=== PATIENT | male | born 1955 | race Caucasian/White ===

== ENCOUNTER 2016-10-31 19:54 | Emergency (ER) | payer BC, SELFPAY ==
--- NOTE | 2016-10-31 20:50 | REPUSA ---
CT of the cervical spine Clinical history: Pain. Technique: Multiple axial CT images were obtained through the cervical spine without administration o f contrast. Coronal and sagittal 3-D reconstructed images were also obtained. Comparison: None. Findings: The cervical vertebral bodies are in satisfactory positioning and alignment. No fractures or dislocat ions are demonstrated. Large anterior flowing osteophytes are seen. The odontoid process is intact. I ntervertebral disc spaces are well-maintained. There is no evidence of facet subluxation. The neural foramen appear grossly patent. The cervical cranial junction is intact. The cervical spinal canal dem onstrates normal caliber and contour without evidence of spinal stenosis. The surrounding soft tissue s are within normal limits. Impression: No acute fracture or traumatic injury. Large anterior flowing osteophytes noted.
[2016-10-31] MEDS ORDERED: CYCLOBENZAPRINE 10 MG TAB As Ordered ONE (22:53)
[2016-10-31] MEDS ORDERED: NORCO 5/325MG TABLET (BULK) As Ordered ONE (22:53)
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
== END 2016-10-31 23:06 | disposition home or self-care (01) ==
LOC: M ED 19:54
DX: M54.9 Dorsalgia, unspecified (principal); M51.37 Other intervertebral disc degeneration, lumbosacral region; M50.93 Cervical disc disorder, unspecified, cervicothoracic region; M25.78 Osteophyte, vertebrae; V43.52XA Car driver injured in collision with other type car in traffic accident, initial encounter; Y92.410 Unspecified street and highway as the place of occurrence of the external cause; Y93.9 Activity, unspecified; Y99.9 Unspecified external cause status; Z72.0 Tobacco use

== ENCOUNTER 2019-03-07 11:00 | Day surgery (SDC) | payer OTHER ==
[~2019-03-07] VITALS: Ht 172.7 cm; Wt 72.5 kg
[~2019-03-07 11:00] MED LIST: LIDOCAINE 2% INJ 100 MG/5 ML SDV (FOR ANES.) As Ordered ONE; NS 1,000 ML IV ONE; PROPOFOL 200 MG/20 ML VIAL As Ordered ONE
--- NOTE | 2019-03-07 12:51 | ROOR ---
Patient Name: Raúl Son Procedure Date: 03/07/2019 12:37 PM Date of : 1955 Age: 63 Room: [facility] Gender: Male Note Status: Finalized Procedure: Upper GI endoscopy Indications: Weight loss Providers: Shmuel ROBB MD Referring MD: Shmuel NEVES MD Requesting Provider: Medicines: Monitored Anesthesia Care Complications: No immediate complications. Procedure: Pre-Anesthesia Assessment: - The heart rate, respiratory rate, oxygen saturations, blood pressure, adequacy of pulmonary ventilation, and response to care were monitored throughout the procedure. The Endoscope was introduced through the mouth, and advanced to the third part of duodenum. The upper GI endoscopy was accomplished without difficulty. The patient tolerated the procedure well. Findings: The esophagus was normal. The stomach was normal. The examined duodenum was normal. Biopsies for histology were taken with a cold forceps in the second portion of the duodenum and in the third portion of the duodenum for evaluation of celiac disease. Impression: - Normal esophagus. - Normal stomach. - Normal examined duodenum. - Biopsies were taken with a cold forceps for evaluation of celiac disease. Recommendation: - Await pathology results. - Telephone endoscopist for pathology results in 2 weeks. Shmuel Robb MD Shmuel ROBB MD 03/07/2019 12:51:20 PM Electronically signed by Shmuel ROBB MD Number of Addenda: 0 Note Initiated On: 03/07/2019 12:37 PM Estimated Blood Loss: Estimated blood loss: none.
--- NOTE | 2019-03-07 13:12 | ROOR ---
Patient Name: Raúl Son Procedure Date: 03/07/2019 12:39 PM Date of : 1955 Age: 63 Room: [facility] Gender: Male Note Status: Finalized Procedure: Colonoscopy Indications: Screening for colorectal malignant neoplasm, Incidental - Weight loss Providers: Shmuel ROBB MD Referring MD: Shmuel NEVES MD Requesting Provider: Medicines: Monitored Anesthesia Care Complications: No immediate complications. Procedure: Pre-Anesthesia Assessment: - The heart rate, respiratory rate, oxygen saturations, blood pressure, adequacy of pulmonary ventilation, and response to care were monitored throughout the procedure. The Colonoscope was introduced through the anus and advanced to 10 cm into the ileum. The colonoscopy was performed without difficulty. The patient tolerated the procedure well. The quality of the bowel preparation was good. Findings: The perianal and digital rectal examinations were normal. Two sessile polyps were found in the sigmoid colon and descending colon. The polyps were diminutive in size. These polyps were removed with a cold snare. Resection and retrieval were complete. The exam was otherwise without abnormality on direct and retroflexion views. Impression: - Two diminutive polyps in the sigmoid colon and in the descending colon, removed with a cold snare. Resected and retrieved. - The examination of the colon and terminal ileum was otherwise normal on direct and retroflexion views. Recommendation: - Telephone endoscopist for pathology results in 2 weeks. - If the pathology report reveals adenomatous tissue, then repeat the colonoscopy for surveillance in 5 years. - If the pathology report indicates hyperplastic polyp, then repeat colonoscopy for screening purposes in 10 years. - Return to referring physician to discuss further studies/testing necessary for the evaluation of weight loss. Shmuel Robb MD Shmuel ROBB MD 03/07/2019 1:11:32 PM Electronically signed by Shmuel ROBB MD Number of Addenda: 0 Note Initiated On: 03/07/2019 12:39 PM Estimated Blood Loss: Estimated blood loss: none.
[2019-03-07 13:48] VITALS: BP 168/80
== END 2019-03-07 13:17 | disposition home or self-care (01) ==
LOC: M OPP 11:00
PROVIDERS: ATTEND Internal Medicine Gastroenterology
DX: K63.5 Polyp of colon (principal); R63.4 Abnormal weight loss; Z12.11 Encounter for screening for malignant neoplasm of colon

== ENCOUNTER → 2019-03-21 | Outpatient (CLI) | payer OTHER ==
--- NOTE | 2019-03-21 11:28 | REP ---
Clinical: Lung screening. History smoking. Comparison: None Technique: Axial low-dose noncontrast images from the thoracic inlet to the upper abdomen using lung screening technique. Findings: The lung ahmadi are well-aerated. There is an area of somewhat nodular irregular opacity along the medial left lower lobe with the largest solid component measuring approximately 14 mm. There is a 5 mm noncalcified nodule density along the periphery in the posterior right upper lobe (image 26). No effusion. No pneumothorax. Tracheobronchial tree is patent. Mediastinum is grossly unremarkable although atherosclerotic changes to the thoracic aorta and coronary arteries are noted. Impression: Lung-RADS category IV. 3-month follow-up examination is recommended. Electronically Signed by Beau Cheney MD 03/21/2019 11:18 A
== END ==
LOC: M RAD 09:35
PROVIDERS: ATTEND Family Medicine
DX: R91.8 Other nonspecific abnormal finding of lung field (principal)

== ENCOUNTER → 2019-03-25 | Outpatient (REF) | payer OTHER, MEDICAID ==
[2019-03-25 13:51] LABS: ALT/SGPT 21 U/L (12-78); BILIRUBIN,TOTAL 0.3 MG/DL (0.2-1.0); BLOOD UREA NITROGEN 11 MG/DL (7-18); CALCIUM LEVEL 8.7 MG/DL (8.8-10.2); CARBON DIOXIDE LEVEL 27 MEQ/L (21-32); CHLORIDE LEVEL 106 MEQ/L (98-107); CREATININE FOR GFR 0.86 MG/DL (0.70-1.30); GLOMERULAR FILTRATION RATE > 60.0 (>49); GLUCOSE, FASTING 119 MG/DL (70-100); POTASSIUM SERUM 4.7 MEQ/L (3.5-5.1); SODIUM LEVEL 139 MEQ/L (136-145); TOTAL PROTEIN 7.2 GM/DL (6.4-8.2)
== END ==
LOC: M LAB REF 13:22
PROVIDERS: ATTEND Family Medicine
DX: R73.02 Impaired glucose tolerance (oral) (principal)